=== PATIENT | female | born 1970 | race African-American/Black ===

== ENCOUNTER 2019-03-28 00:40 | Emergency (ER) | payer BC ==
[~2019-03-28] VITALS: Ht 162.6 cm; Wt 70.3 kg
[~2019-03-28 00:40] MED LIST: AMOXICILLIN500 MG ORAL; CYCLOBENZAPRINE10 MG ORAL; DEBROX15 M1 RIGHT EAR; IBUPROFEN600 MG ORAL; NKM
[2019-03-28 01:10] VITALS: BP 136/76
--- NOTE | 2019-03-28 01:12 | NUR ---
ED Nurse Note: Patient walked in to ER c/o left shoulder pain 11/25. Stated had cosmetic surgery at last Thursday, liposection on left and right shoulders, abdomen, and back. Patient presented AAO x4, VSS at this time.
--- NOTE | 2019-03-28 01:25 | Emergency Room Report ---
History of Present Illness General Chief Complaint: Pain Source: Patient Present Illness HPI This a 48-year-old female with no significant past medical history. She presents with chief complaint of left shoulder/scapular pain. Last week she had an extensive liposuction done in [place]. Then she did complain a lot of pain. She was taking pain medication from [place] and initially it was working and then it stopped. She is been taking [place] that her sister supplied to her. She also try some OxyContin that was leftover from previous back surgery in 2018. She presents with chief complaint of mostly left scapular pain. She said this felt deep inside. Nothing made it better nothing made it worse. She denies any shortness of breath or calf tenderness. The liposuction is self is about 2-hour long. She denies any nausea or vomiting. Denies any chest pain. Denies any shortness of breath. Pain is 9 out of 10. Allergies: Coded Allergies: No Known Allergies (Unverified , 09/04/13) Patient History Past Medical History: see triage record, old chart reviewed Past Surgical History: other Pertinent Family History: none Social History: Denies: smoking Last Menstrual Period: 03-19-2019 Now: No Immunizations: other Reviewed Nursing Documentation: PMH: Agreed; PSxH: Agreed Nursing Documentation-PMH Past Medical History: No Stated History Review of Systems Eye: Denies: eye pain, blurred vision ENT: Denies: ear pain, nose congestion, throat swelling Respiratory: Denies: cough, shortness of breath Cardiovascular: Denies: chest pain, palpitations Gastrointestinal: Denies: abdominal pain, diarrhea, nausea, vomiting Musculoskeletal: Reports: back pain; Denies: joint pain Skin: Denies: rash Neurological: Denies: headache, numbness Endocrine: Denies: increased thirst, increased urine Hematologic/Lymphatic: Denies: easy bruising All Other Systems: negative except mentioned in HPI Physical Exam Vital Signs Date Time Temp Pulse Resp B/P (MAP) Pulse Ox O2 Delivery O2 Flow Rate FiO2 03/28/19 00:43 98.1 86 20 136/76 (96) 97 Room Air Normal Sp02 EP Interpretation: reviewed, normal General Appearance: well appearing, no apparent distress, alert Head: normocephalic, atraumatic Eyes: bilateral eye PERRL, bilateral eye EOMI ENT: hearing grossly normal, normal pharynx Neck: full range of motion, supple, no meningismus Respiratory: chest non-tender, lungs clear, normal breath sounds Cardiovascular #1: regular rate, rhythm, no murmur Gastrointestinal: normal bowel sounds, non tender, no mass, no organomegaly, no bruit, non-distended Musculoskeletal: back normal, normal range of motion, gait/station normal Psychiatric: mood/affect normal Medical Decision Making Diagnostic Impression: Primary Impression: Post-op pain ER Course Patient presents with postoperative pain. No evidence of ACS, PE, dissection to name a few. CT scans unremarkable. The edematous changes seen in the subcutaneous fat tissue is secondary to her recent liposuction. No evidence of any infection. CT/MRI/US Diagnostic Results CT/MRI/US Diagnostic Results : Imaging Test Ordered: CT chest Impression Read by radiologist. No PE. No acute chest pathology. Modest changes seen in the subcu tissue of the upper abdomen Last Vital Signs Date Time Temp Pulse Resp B/P (MAP) Pulse Ox O2 Delivery O2 Flow Rate FiO2 03/28/19 01:10 98.1 20 136/76 97 Room Air 03/28/19 00:43 86 Status: improved Disposition: HOME, SELF-CARE Condition: Stable Scripts Oxycodone Hcl/Acetaminophen 10-325 Mg Tablet (PERCOCET 10-325 MG TABLET*) 1 Each Tablet 1 TAB ORAL Q6H PRN, #20 TAB 0 Refills Prov: Ari Velazquez MD 03/28/19 Referrals: NON PHYSICIAN (PCP) Additional Instructions: Apply warm compresses to the area. Follow-up with your doctor on . Return if symptoms worsen. Ari Velazquez MD Mar 28, 2019 01:25
[2019-03-28] MEDS ORDERED: HYDROmorphone 1mg/ml Carpuject IVP ONE ×2 (01:30→04:30)
[2019-03-28 01:55] LABS: BASOPHILS % (AUTO) 0.7 % (0.0-2.0); EOSINOPHILS % (AUTO) 2.8 % (0.0-3.0); HEMATOCRIT 31.9 % (37.0-47.0); HEMOGLOBIN 11.2 G/DL (12.0-16.0); LYMPHOCYTES % (AUTO) 33.5 % (20.0-45.0); MEAN CORPUSCULAR VOLUME 81 FL (80-99); MONOCYTES % (AUTO) 10.7 % (1.0-10.0); NEUTROPHILS % (AUTO) 52.3 % (45.0-75.0); PLATELET COUNT 356 K/UL (150-450); RED BLOOD COUNT 3.94 M/UL (4.20-5.40); RED CELL DISTRIBUTION WIDTH 12.4 % (11.6-14.8); WHITE BLOOD COUNT 4.9 K/UL (4.8-10.8)
[2019-03-28 02:09] LABS: ANION GAP 8 mmol/L (5-15); BLOOD UREA NITROGEN 11 mg/dL (7-18); CALCIUM 9.3 MG/DL (8.5-10.1); CARBON DIOXIDE 29 MMOL/L (21-32); CHLORIDE 104 MMOL/L (98-107); CREATININE 0.9 MG/DL (0.55-1.30); POTASSIUM 3.6 MMOL/L (3.5-5.1); SODIUM 141 MMOL/L (136-145)
[2019-03-28 02:11] LABS: APPEARANCE,URINE CLEAR; BILIRUBIN, URINE NEGATIVE (NEGATIVE); COLOR,URINE PALE YELLOW; GLUCOSE, URINE (UA) NEGATIVE (NEGATIVE); KETONES,URINE NEGATIVE (NEGATIVE); LEUKOCYTE ESTERASE ,URINE NEGATIVE (NEGATIVE); NITRITE,URINE NEGATIVE (NEGATIVE); PH,URINE 6 (4.5-8.0); PROTEIN,URINE NEGATIVE (NEGATIVE); UROBILINOGEN,URINE NORMAL MG/DL (0.0-1.0)
[2019-03-28] MEDS ORDERED: Omnipaque 350 100ml vial INJ PRN (03:00)
[2019-03-28] MEDS ORDERED: PERCOCET 10-321 EACH ORAL (04:27)
[2019-03-28 04:35] VITALS: BP 131/85
--- NOTE | 2019-03-28 04:35 | NUR ---
ED Nurse Note: Pt cleared by ERMD for discharge. DC instructions/prescription was given and explained to pt and verbalized understanding of teachings. All medical deviecs such as ID band and Iv line removed. Pt is AAO x4, ambulatory and left with all personal belongings. Accompanied by her .
--- NOTE | 2019-03-28 10:37 | Diagnostic Imaging Report ---
Indication: Chest pain Technique: Continuous helical transaxial imaging of the chest was obtained from the thoracic inlet to the upper abdomen during rapid intravenous contrast administration. Arterial phase of enhancement obtained. Coronal 2-D reformats were also obtained and maximum intensity projection images in multiple planes. Study obtained in a Siemens sensation [address] Automatic Exposure Control was utilized. Total Dose length Product (DLP): 775.[address] Dose Index Volume (CTDIvol): 18 mGy Comparison: None Findings: Bilateral breast implants are noted. The pulmonary artery is well opacified and shows no filling defects. There is no adenopathy, pleural or pericardial effusions are identified. There is no aortic dissection or aneurysm identified within the chest. The lungs are clear. Visualized part of the upper abdomen is unremarkable. There is a moderate amount of fecal retention demonstrated within the visualized part of the colon. There is considerable artifact limiting evaluation. IMPRESSION: Limited evaluation due to artifact. No evidence of pulmonary embolus, aortic dissection or aneurysm. Moderate fecal retention. Bilateral breast implants. [facility] has communicated the preliminary results to the Emergency Department. Their findings are largely concordant with this report. The CT scanner at [facility] is accredited by the [employer] and the scans are performed using dose optimization techniques as appropriate to a performed exam including Automatic Exposure control.
== END 2019-03-28 04:35 | disposition home or self-care (01) ==
LOC: EMR 01:14
DX: G89.18 Other acute postprocedural pain (principal); R07.9 Chest pain, unspecified; M25.512 Pain in left shoulder; Z98.890 Other specified postprocedural states
CPT/HCPCS: 36415; 71275; 80048; 81001; 81025; 85025; 85379; 96374; 96375; 96376; 99284; J1170; J2405; Q9967

== ENCOUNTER 2019-04-04 23:36 | Emergency (ER) | payer BC ==
[~2019-04-04] VITALS: Ht 162.6 cm; Wt 68.0 kg
[~2019-04-04 23:36] MED LIST changes: +PERCOCET 10-321 EACH ORAL
[2019-04-05 00:10] VITALS: BP 137/92
--- NOTE | 2019-04-05 00:15 | NUR ---
ED Nurse Note: Patient walked in to ER from home c/o L hand and arm pain. Patient was seen and evaluated here for post-op pain on 03/28 states that she is out of her prescribed pain meds (percocet) took the last one at 1800. AAO x4, VSS at this time, skin is warm to touch
[2019-04-05] MEDS ORDERED: HYDROcodone/Acetamin 5/325 tab ORAL ONE (00:45)
[2019-04-05] MEDS ORDERED: PERCOCET 5-3251 EACH ORAL (00:53)
--- NOTE | 2019-04-05 00:54 | Emergency Room Report ---
History of Present Illness General Chief Complaint: Pain Source: Patient Present Illness HPI This a 48-year-old female who had a whole body liposuction done in [place] on March 19. Since then she has been having body pain. She came here about a week ago and was seen by me. Work-up was negative for PE. She does have edema of the body from the CT scan. She said is improving but her pain continued. Some days she is okay. Other days very painful. Better with narcotic. Because her doctor is in [place] she has not follow-up. He is supposed to see her this Thursday in 2 days. She denies any fever chills. She said bruising is improved. Worse with movement. When the pain comes on its 9-10 out of 10. Malaise is better. She is able to move about more. No other complaint. Allergies: Coded Allergies: No Known Allergies (Unverified , 09/04/13) Patient History Past Medical History: see triage record, old chart reviewed Past Surgical History: other Pertinent Family History: none Social History: Denies: smoking Last Menstrual Period: 03/19/19 Now: No Immunizations: other Reviewed Nursing Documentation: PMH: Agreed; PSxH: Agreed Nursing Documentation-PMH Past Medical History: No Stated History Review of Systems Eye: Denies: eye pain, blurred vision ENT: Denies: ear pain, nose congestion, throat swelling Respiratory: Denies: cough, shortness of breath Cardiovascular: Denies: chest pain, palpitations Gastrointestinal: Denies: abdominal pain, diarrhea, nausea, vomiting Musculoskeletal: Denies: back pain, joint pain Skin: Denies: rash Neurological: Denies: headache, numbness Endocrine: Denies: increased thirst, increased urine Hematologic/Lymphatic: Denies: easy bruising All Other Systems: negative except mentioned in HPI Physical Exam Vital Signs Date Time Temp Pulse Resp B/P (MAP) Pulse Ox O2 Delivery O2 Flow Rate FiO2 04/04/19 23:47 98.2 84 18 137/92 (107) 95 Room Air Vitals normal Sp02 EP Interpretation: reviewed, normal General Appearance: well appearing, no apparent distress, alert Head: normocephalic, atraumatic Eyes: bilateral eye PERRL, bilateral eye EOMI ENT: hearing grossly normal, normal pharynx Neck: full range of motion, supple, no meningismus Respiratory: chest non-tender, lungs clear, normal breath sounds Cardiovascular #1: regular rate, rhythm, no murmur Gastrointestinal: normal bowel sounds, non tender, no mass, no organomegaly, no bruit, non-distended Musculoskeletal: back normal, normal range of motion, gait/station normal Psychiatric: mood/affect normal Medical Decision Making Diagnostic Impression: Primary Impression: Post-op pain ER Course Patient with postoperative pain. Her bruising is improved greatly. No evidence of infection or sepsis. Last Vital Signs Date Time Temp Pulse Resp B/P (MAP) Pulse Ox O2 Delivery O2 Flow Rate FiO2 04/05/19 00:10 98.2 18 137/92 95 Room Air 04/04/19 23:47 84 Status: improved Disposition: HOME, SELF-CARE Condition: Stable Scripts Oxycodone/Acetaminophen 5-325* (PERCOCET 5-325 MG TABLET*) 1 Each Tablet 1 TAB ORAL Q6H PRN for For Pain, #20 TAB Prov: Ari Velazquez MD 04/05/19 Referrals: NON PHYSICIAN (PCP) Additional Instructions: Follow-up with your doctor in 2 days as scheduled. Return if symptoms worsen. Ari Velazquez MD Apr 05, 2019 00:54
[2019-04-05 01:01] VITALS: BP 137/92
--- NOTE | 2019-04-05 01:02 | NUR ---
ED Nurse Note: Pt cleared by health care Provider for discharge. DC instructions/prescription was given and explained to pt and verbalized understanding of teachings. All medical deviecs such as ID band removed. Pt is AAO x4, ambulatory and left with all personal belongings.
== END 2019-04-05 01:04 | disposition home or self-care (01) ==
LOC: EMR 23:59
DX: G89.18 Other acute postprocedural pain (principal)
CPT/HCPCS: 99282